=== PATIENT | female | born 1995 | race Caucasian/White ===

== ENCOUNTER 2017-01-19 10:15 | Emergency (ER) | payer BC ==
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
== END 2017-01-19 11:53 | disposition home or self-care (01) ==
LOC: ERS 10:15
DX: S60.222A Contusion of left hand, initial encounter (principal); V49.9XXA Car occupant (driver) (passenger) injured in unspecified traffic accident, initial encounter